=== PATIENT | male | born 1945 | race Caucasian/White ===

== ENCOUNTER 2018-12-13 06:09 | Day surgery (SDC) | payer MEDICARE, OTHER ==
[2018-12-10 08:44] VITALS: BMI 25.1
[2018-12-13 07:04] LABS: #Basophils 0.1 thou/uL (0.0-0.2); #Eosinphils 0.2 thou/uL (0.0-0.7); #Lymphocytes 1.7 thou/uL (1.20-3.40); #Monocytes 0.6 thou/uL (0.11-0.59); #Neutrophils 2.7 thou/uL (1.40-6.50); %Basophils 1.3 % (0.0-1.0); %Eosinophils 3.4 % (0.0-10.0); %Lymphocytes 32.8 % (21.0-51.0); %Neutrophils 51.5 % (42.0-75.0); Hemoglobin 14.7 g/dL (14.0-18.0); Mean Corpuscular HGB CONC 31.8 g/dL (32.0-36.0); Mean Corpuscular Hemoglobin 31.2 pg (27.0-31.0); Mean Corpuscular Volume 98.1 fL (78.0-98.0); Mean Platelet Volume 8.9 fL (7.4-10.4); Platelet Count 146 thou/uL (130-400); RBC Distribution Width 13.1 % (11.5-14.5); Red Blood Cell (RBC) Count 4.71 mill/uL (4.70-6.10); White Blood Cell (WBC) Count 5.2 thou/uL (4.8-10.8)
[2018-12-13 07:11] LABS: INR-International Normal Ratio 1.1; PTT 35.9 SEC (22.9-36.1); Prothrombin Time 13.8 SEC (12.0-14.7)
[2018-12-13] MEDS ORDERED: Propofol 500 MG/50 ML VIAL ONE (07:24)
[2018-12-13 07:26] LABS: Anion Gap 12 mmol/L (10-20); BUN (Urea Nitrogen) 19 mg/dL (8.4-25.7); Calc. Creatinine Clearance 90 mL/min (70-130); Calcium 9.1 mg/dL (7.8-10.44); Carbon Dioxide 26 mmol/L (23-31); Chloride 106 mmol/L (98-107); Estimated GFR-MDRD Greater than 90; Glucose 91 mg/dL (83-110); Sodium 140 mmol/L (136-145)
[2018-12-13] MEDS ORDERED: Fentanyl 100 MCG/2 ML VIAL ONE (08:17)
[2018-12-13] MEDS ORDERED: PROPOFOL 40 ML ONE (09:15)
[2018-12-13] MEDS ORDERED: DOPamine 400 MG/D5W 250 ML 250 ML ONE (09:40)
[2018-12-13] MEDS ORDERED: Amiodarone 150 MG/3 ML VIAL ONE ×2 (10:14)
[2018-12-13] MEDS ORDERED: hydrALAZINE 20 MG/ML VIAL ONE (12:46)
--- NOTE | 2018-12-13 14:08 | OP ---
DATE OF PROCEDURE: 12/13/2018 PROCEDURES PERFORMED: Electrophysiology study and radiofrequency ablation. ADDITIONAL REFERRING PHYSICIAN: Dr. Fanta Hernandez. REASON FOR PROCEDURE: Mr. Cordova is a 73-year-old man with prior history of coronary artery disease, recurrent atrial flutter with rapid rates on chronic anticoagulation, now back in sinus rhythm. He is here for EP study and radiofrequency ablation for the atrial flutter. DESCRIPTION OF PROCEDURE: The patient received propofol by Anesthesia specialist. After adequate level of sedation achieved, the right femoral venous area was prepped, draped, and anesthetized using subcutaneous lidocaine and under ultrasound guidance, the right femoral vein was accessed x2. Two 8-[place] short sheath was introduced through which a ThermoCool SFST catheter was advanced to the right atrium, His bundle, CS, and right ventricular area and 3D map of the structures were obtained. A decapolar deflectable catheter was advanced to the right ventricle, His bundle right atrium, and CS position. Pacing, mapping, and recording were performed in each location. Following findings were noted. The baseline rhythm is sinus rhythm at cycle length of 982 milliseconds, TX 200 milliseconds, QRS 150 milliseconds, QT 408 milliseconds, and HV was 52 milliseconds. The sinus node recovery time was 447, corrected 465 milliseconds. The antegrade Wenckebach cycle length was 370 milliseconds. Retrograde Wenckebach cycle length was 340 milliseconds. AV ya ERP was 600/300 milliseconds with dual AV physiology was present. During ventricular pacing, concentric retrograde VA conduction was noted. Burst atrial pacing was able to induce an atrial flutter, which was with cycle length of 260 milliseconds. The CS activation was suggestive of typical atrial flutter and proximal CS pacing yielded post pacing interval of 260 milliseconds approximating the tachycardia cycle length. At this point, the atrial flutter self-terminated. We proceeded with the cavotricuspid isthmus ablation. With the proximal CS pacing, radiofrequency ablation lesions were delivered at the cavotricuspid isthmus. Total of 6 ablation lesion at 6 minutes and 9 seconds duration at 40 yoo were delivered. With this, we were able to prolong the transisthmus time to 190 milliseconds with unilateral transisthmus block was demonstrated by the longest transisthmus time adjacent to the ablation line lateral side. Dopamine was administered and atrial fibrillation was spontaneously induced, which was distinctly different from the baseline atrial flutter. The IV amiodarone was administered as well. After sinus rhythm was restored. The ablation line was rechecked on and off dopamine and any reconnection was reablated. At the end of the case, no significant change in the cardiac silhouette was noted. The patient left the clinical genetics laboratory chief after pulling the catheters and sheaths without issues. CONCLUSION: 1. Inducible atrial flutter status post cavotricuspid isthmus ablation limiting atrial flutter inducibility. 2. Spontaneous atrial fibrillation is seen on the ablation. 3. Abnormal sinus ya function. 4. Dual AV ya physiology present without inducible reentry type arrhythmia. 5. No evidence of accessory pathway. PLAN: Add antiarrhythmic agents and consider pulmonary venous isolation procedure. Job ID: [id number]
[2018-12-13] MEDS ORDERED: Sodium Chloride 0.9% 10 ML ONE (14:33)
[2018-12-13] MEDS ORDERED: PHENYLEPHRINE-NS 100 MCG/ML 10 ML SYRINGE ONE (16:45)
[2018-12-13] MEDS ORDERED: ePHEDrine 50 MG/ML VIAL ONE (16:45)
[2018-12-13] MEDS ORDERED: PROPOFOL 200 MG/20 ML VIAL ONE (16:45)
== END 2018-12-13 16:00 | disposition home or self-care (01) ==
LOC: CCL 06:09
PROVIDERS: ATTEND Internal Medicine Cardiovascular Disease
PROC: 02583ZZ Destruction of Conduction Mechanism, Percutaneous Approach (ICD-10-PCS; principal; 2018-12-13)
PROC: 02K83ZZ Map Conduction Mechanism, Percutaneous Approach (ICD-10-PCS; 2018-12-13)
PROC: 4A023FZ Measurement of Cardiac Rhythm, Percutaneous Approach (ICD-10-PCS; 2018-12-13)
PROC: 4A0234Z Measurement of Cardiac Electrical Activity, Percutaneous Approach (ICD-10-PCS; 2018-12-13)
DX: I48.4 Atypical atrial flutter (principal); I48.91 Unspecified atrial fibrillation; I25.10 Atherosclerotic heart disease of native coronary artery without angina pectoris; M79.7 Fibromyalgia; I10 Essential (primary) hypertension; M06.9 Rheumatoid arthritis, unspecified; Z79.01 Long term (current) use of anticoagulants; Z79.899 Other long term (current) drug therapy
CPT/HCPCS: 36415; 76942; 80048; 85025; 85610; 85730; 92960; 93005; 93010; 93613; 93621; 93623; 93653; C1732; C1769; J0282; J0360; J1265; J1644; J2704; J3010; J3490

== ENCOUNTER 2019-01-24 06:04 | Observation (INO) | payer MEDICARE, OTHER ==
[2019-01-21 10:38] VITALS: BMI 25.1
[2019-01-24 06:29] LABS: #Basophils 0.1 thou/uL (0.0-0.2); #Eosinphils 0.3 thou/uL (0.0-0.7); #Lymphocytes 2.8 thou/uL (1.20-3.40); #Monocytes 0.7 thou/uL (0.11-0.59); #Neutrophils 1.9 thou/uL (1.40-6.50); %Basophils 0.9 % (0.0-1.0); %Eosinophils 5.7 % (0.0-10.0); %Lymphocytes 48.5 % (21.0-51.0); %Monocytes 11.4 % (0.0-10.0); %Neutrophils 33.5 % (42.0-75.0); Mean Corpuscular HGB CONC 32.8 g/dL (32.0-36.0); Mean Corpuscular Hemoglobin 31.7 pg (27.0-31.0); Mean Corpuscular Volume 96.7 fL (78.0-98.0); Mean Platelet Volume 8.2 fL (7.4-10.4); Platelet Count 177 thou/uL (130-400); Red Blood Cell (RBC) Count 5.04 mill/uL (4.70-6.10); White Blood Cell (WBC) Count 5.8 thou/uL (4.8-10.8)
[2019-01-24 06:35] LABS: INR-International Normal Ratio 1.1; PTT 31.8 SEC (22.9-36.1); Prothrombin Time 14.1 SEC (12.0-14.7)
[2019-01-24] MEDS ORDERED: Isoproterenol 0.2 MG/1 ML AMP ONE (06:39)
[2019-01-24] MEDS ORDERED: Lidocaine 1% (PF) 30 ML VIAL ONE (06:39)
[2019-01-24] MEDS ORDERED: Heparin 10,000 UNITS/1 ML VIAL ONE ×2 (06:39→09:41)
[2019-01-24 06:48] LABS: Anion Gap 10 mmol/L (10-20); BUN (Urea Nitrogen) 24 mg/dL (8.4-25.7); Calc. Creatinine Clearance 83 mL/min (70-130); Calcium 9.2 mg/dL (7.8-10.44); Carbon Dioxide 29 mmol/L (23-31); Chloride 107 mmol/L (98-107); Estimated GFR-MDRD 87; Glucose 93 mg/dL (83-110); Potassium 4.1 mmol/L (3.5-5.1); Sodium 142 mmol/L (136-145)
[2019-01-24] MEDS ORDERED: Fentanyl 100 MCG/2 ML VIAL ONE (07:55)
[2019-01-24] MEDS ORDERED: Heparin 25,000 units/D5W 500 ML ONE (09:38)
[2019-01-24] MEDS ORDERED: Protamine Sulfate 50 MG/5 ML VIAL ONE (11:37)
--- NOTE | 2019-01-24 13:42 | RAD ---
PORTABLE CHEST: Date: 01/24/19 Exam obtained supine. INDICATION: Atrial ablation. COMPARISON: Remote film from 2001. FINDINGS: Heart and mediastinum are accentuated by this portable supine projection. Vascular markings are also prominent, but are accentuated by this position. I cannot exclude some left lower lung atelectasis or infiltrate on this study. There is increased density seen in the left lung base through the cardiac silhouette. A short-term upright PA and lateral view of the chest recommended to re-evaluate. IMPRESSION: Vascularity is accentuated by the supine position. I cannot exclude atelectasis or infiltrate in the left lung base. Follow-up upright PA and lateral views recommended. POS: [facility]
--- NOTE | 2019-01-24 14:59 | OP ---
DATE OF PROCEDURE: 01/24/2019 REASON FOR PROCEDURE: Mr. Cordova is a 73-year-old man with prior history of atrial fibrillation and flutter, prior CTI ablation with recurrent atrial fibrillation requiring Multaq administration with intermittent breakthrough episodes. Here for a pulmonary venous isolation. DESCRIPTION OF PROCEDURE: The patient received propofol by Anesthesia specialist, and general anesthesia was induced. A transesophageal probe was advanced to the esophagus to monitor esophageal temperature and to avoid excessive heating. Femoral venous area was prepped, draped, and anesthetized using subcutaneous lidocaine, and with ultrasound guidance, both femoral veins were cannulated x2. On the left side, an 11-[place] sheath was used to advance an intracardiac echocardiogram probe into the right atrium to monitor transseptal procedure and for any pericardial effusion throughout the procedure. On the left side, also an 8-[place] short sheath exchanged to a Preface sheath, which was later used to advance the DuoDeca catheter into the right atrium in the CS position. On the right side, two 8-[place] short sheaths were introduced, which were later exchanged to two SL1 sheaths. Through the first SL1 sheath, ThermoCool SFST catheter was advanced to the right atrium. Right atrial, His bundle, and CS map were obtained. Following that, with a 2nd SL1 sheath, a transseptal puncture was performed using a Modern Feed transseptal powered needle. IV heparin was administered prior to the transseptal puncture and with bolus and continuous infusion to achieve ACT over 350 throughout the case. Following that, transseptal puncture was performed with an SL1 catheter and a 20-pole Lasso catheter was introduced through this catheter within the left atrium. A second transseptal puncture was also performed, and through this, the SL1 catheter was advanced through the left atrium as well. 3D map of the left atrium was obtained, and following that, a pulmonary venous isolation was performed of all 4 pulmonary veins as well as the posterior wall by introducing a superior and inferior ablation line. Successful isolation of these structures was achieved. Isuprel was introduced at this time, and all 4 pulmonary veins were checked for reconnection, none was found. Posterior wall was also well isolated by the end of the case. Total number of fibrillations delivered were a total of 47 lesions were delivered with total ablation time seconds, about 27 minutes. On the right side, also with proximal CS pacing, the prior cavotricuspid isthmus line was checked. There was still transmission through this line was seen. No complex block was observed. A conduction through the anterior portion of the line was observed and lesions were placed in this area as well, and we achieved complete cavotricuspid isthmus block again. Basic EP study was also performed with the following findings. The baseline rhythm was sinus rhythm at 1271 milliseconds. QRS was 117 milliseconds. QT 470 milliseconds. AH 153 milliseconds, HV 37 milliseconds noted. AV Wenckebach cycle length was 320 milliseconds. Retrograde Wenckebach cycle was 400 milliseconds. Concentric retrograde VA conduction was seen. AV ya ERP was checked at 600/260 milliseconds, and no dual AV ya physiology was observed. Burst atrial pacing induced only very short transient atypical atrial flutter, which promptly self-terminated. At the end of the case, the cine and the intracardiac catheter views ruled out significant pericardial effusion. At this point, the catheters and the sheaths were removed and vascular closure was performed in all 4 pulmonary veins. The patient tolerated the procedure well. 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 CONCLUSION: 1. Successful isolation of 4 pulmonary veins. 2. Posterior wall isolation by placement of a superior and then inferior posterior wall line are performed. 3. Touchup CTI line ablation also performed achieving cavotricuspid isthmus block prolonging transisthmus time from initial 60 milliseconds to 140 milliseconds. 4. No inducible arrhythmias at end of the case. 5. No evidence of accessory pathway. 6. No evidence of slow pathway or any evidence of SVT is seen and no evidence of SVT seen. PLAN: Stop Multaq. Continue oral anticoagulation for now. Monitor for any recurrent atrial arrhythmias. Job ID: [id number]
[2019-01-24] MEDS ORDERED: hydrALAZINE 20 MG/ML VIAL SLOW IVP PRN (15:50)
[2019-01-24] MEDS: Sucralfate 1 GM TAB PO SCH (17:09)
[2019-01-24] MEDS: Carvedilol 6.25 MG TAB PO SCH (21:38)
[2019-01-24] MEDS: Apixaban 5 MG TAB PO SCH (21:41)
[2019-01-25] MEDS: Sucralfate 1 GM TAB PO SCH ×2 (00:30→06:06)
[2019-01-25] MEDS ORDERED: Multivit, Therapeutic 1 TAB PO SCH (09:00)
[2019-01-25] MEDS ORDERED: Fish Oil 1,000 MG CAP PO SCH (09:00)
[2019-01-25] MEDS ORDERED: Folic Acid 1 MG TAB PO SCH (09:00)
[2019-01-25] MEDS ORDERED: Ubidecarenone 50 MG CAP PO SCH (09:00)
[2019-01-25] MEDS ORDERED: CERTOLIZUMAB PEGOL 400 MG SC SCH (09:00)
[2019-01-25] MEDS: Carvedilol 6.25 MG TAB PO SCH (09:43)
[2019-01-25] MEDS: Apixaban 5 MG TAB PO SCH (09:43)
[2019-01-25 11:58] VITALS: BP 117/68; TEMP 98.7
--- NOTE | 2019-01-26 10:03 | DIS ---
DATE OF ADMISSION: 01/24/2019 DATE OF DISCHARGE: 01/25/2019 DIAGNOSIS: Atrial fibrillation. PROCEDURES PERFORMED: Electrophysiology study in 3 dimensional mapping with ablation for atrial fibrillation. HISTORY OF PRESENT ILLNESS: Mr. Cordova is a 73-year-old gentleman with a prior history of atrial fibrillation and atrial flutter. He underwent right atrial cavotricuspid isthmus modification ablation earlier this year, was found to have recurrent atrial fibrillation requiring transient Multaq administration, but continued to have intermittent breakthrough episodes. He was admitted for an elective outpatient pulmonary venous isolation which was performed on [address] Cooper. He received a total of 27 minutes of energy delivered. He underwent successful isolation of 4 pulmonary veins, posterior wall isolation, and inferior posterior wall line were performed. Touch-up CTI ablation was also performed, achieving cavotricuspid isthmus block. He was noninducible for arrhythmias at the end of the case, there was no evidence of accessory pathway or SVT. Recommendations post ablation were to stop Multaq and continue oral anticoagulation as we monitored for recurrent arrhythmias. SUBJECTIVE: Mr. Cordova is feeling well today. He denies any heart racing palpitations, chest pain, pressure syncope, near syncope, stroke, stroke like symptoms. He has not had any bleeding or complications at his groin site. He was ambulating without difficulty. He is tolerating p.o. intake, voiding normally, having no shortness of breath or chest pain. REVIEW OF SYSTEMS: An 8-point review of systems is conducted and is negative except as listed above in the HPI. OBJECTIVE: VITAL SIGNS: Temperature 98.7, pulse 64, blood pressure 117/68, respirations 16, oxygen 94% on room air. GENERAL: The patient is alert and oriented. Speech is clear. Affect is appropriate. NEUROLOGIC: Grossly intact to nonfocal. Gait is stable. Bilateral groin sites are open to air without any hematoma or bleeding complications. NECK: Supple without jugular venous distention. HEART: Heart rate is S1 and S2 is noted. LUNGS: Clear to auscultation bilaterally. EXTREMITIES: Warm and dry to touch without clubbing or cyanosis, but trace bilateral edema is noted to the mid tibia, which he reports is his baseline. LABORATORY DATA: Telemetry and EKGs were all personally reviewed, currently reflects sinus rhythm, but there is frequent atrial ectopy seen, though no episodes of atrial fibrillation or atrial flutter are seen on monitor. DISCHARGE INSTRUCTIONS: 1. No lifting more than 10 pounds or soaking baths for 1 week. 2. No driving for 2 days. In one week's time, he may resume activities gradually and as tolerated. He is to take 40 mg of Lasix with 20 mEq of potassium as needed for shortness of breath and fluid retention. He will continue his home medications as previously taken, but discontinue Multaq. HOME MEDICATIONS ON DISCHARGE: 1. CoQ10 100 mg p.o. daily. 2. Multivitamin daily. 3. Methotrexate sodium oral weekly. 4. Folic acid 1 mg daily. 5. Fish oil 1000 mg daily. 6. Cimzia 400 mg subcu monthly. 7. Carvedilol 12.5 mg p.o. b.i.d. 8. Eliquis 5 mg p.o. b.i.d. New prescriptions provided: 1. Sucralfate 1 g p.o. q.6 hours x2 weeks. 2. Pantoprazole 40 mg p.o. daily x30 days. 3. Furosemide 40 mg p.o. daily p.r.n. shortness of breath and/or fluid rentention. 4. Potassium chloride 20 mEq p.o. daily p.r.n. to be taken with Lasix for fluid management. Discontinued medications: 1. Multaq. CONDITION AT DISCHARGE: Stable. Job ID: [id number] MTDD
[2019-01-31] MEDS ORDERED: Methotrexate Sodium 2.5 MG TAB PO SCH (09:00)
== END 2019-01-25 13:02 | disposition home or self-care (01) ==
LOC: CCL 06:04 → 2SW 12:24
PROVIDERS: ADMIT Internal Medicine Cardiovascular Disease; ATTEND Internal Medicine Cardiovascular Disease
PROC: 02583ZZ Destruction of Conduction Mechanism, Percutaneous Approach (ICD-10-PCS; principal; 2019-01-24)
PROC: 4A023FZ Measurement of Cardiac Rhythm, Percutaneous Approach (ICD-10-PCS; 2019-01-24)
PROC: 4A0234Z Measurement of Cardiac Electrical Activity, Percutaneous Approach (ICD-10-PCS; 2019-01-24)
DX: I48.91 Unspecified atrial fibrillation (principal); I48.4 Atypical atrial flutter; I45.10 Unspecified right bundle-branch block; I25.119 Atherosclerotic heart disease of native coronary artery with unspecified angina pectoris; I10 Essential (primary) hypertension; M06.9 Rheumatoid arthritis, unspecified; E55.9 Vitamin D deficiency, unspecified; Z79.01 Long term (current) use of anticoagulants; Z79.899 Other long term (current) drug therapy
CPT/HCPCS: 71045; 76942; 80048; 85025; 85347 ×2; 85610; 85730; 93005; 93613; 93623; 93656; 93662; 96374; C1731; C1732 ×3; C1759; C1769; G0378; 36415; 93010; J0360; J1644; J2001; J2720; J3010